=== PATIENT | male | born 1985 | race Caucasian/White ===

== ENCOUNTER 2016-07-06 19:32 | Emergency (ER) | payer BC ==
[2016-07-06 21:07] LABS: Appearance,Urine Clear (Clear); Bilirubin,Urine Negative (Negative); Glucose,Urine (UA) Negative (Negative); Ketones,Urine Negative (Negative); Leukocyte Esterase,Urine Negative (Negative); Nitrite,Urine Negative (Negative); PH, Urine 5.5 (5.0-8.0); Protein,Urine Negative (Negative); Specific Gravity,Urine 1.016 (1.001-1.035); UA Billing (MACRO vs. MICRO) CHEM; Urobilinogen,Urine <2.0 mg/dL (<2.0)
--- NOTE | 2016-07-06 21:34 | ED ---
Male Urogenital HPI - General Chief complaint: Urogenital Stated complaint: Male Time Seen by Provider: 07/06/16 20:11 Source: patient Mode of arrival: ambulatory Limitations: no limitations - Related Data Previous Rx's Medication Instructions Recorded Doxycycline Monohydrate [Monodox] 100 mg PO Q12HR #14 cap 07/06/16 Ibuprofen [Motrin] 800 mg PO Q8HR PRN #30 tab 07/06/16 Allergies Allergy/AdvReac Type Severity Reaction Status Date / Time amoxicillin Allergy Rash/Hives Verified 07/06/16 20:21 Review of Systems ROS Statement: Those systems with pertinent positive or pertinent negative responses have been documented in the HPI. ROS Other: All systems not noted in ROS Statement are negative. Past Medical History Past Medical History: No Reported History History of Any Multi-Drug Resistant Organisms: None Reported Past Surgical History: Tonsillectomy Past Psychological History: No Psychological Hx Reported Smoking Status: Never smoker General Exam Limitations: no limitations Course Vital Signs 07/06/16 19:49 Temperature 97.2 F L Pulse Rate 89 Respiratory 16 Rate Blood Pressure 160/90 O2 Sat by Pulse 97 Oximetry Medical Decision Making - Lab Data Lab Results 07/06/16 Range/Units 20:56 Urine Color Yellow Urine Appearance Clear (Clear) Urine pH 5.5 (5.0-8.0) Ur Specific [place] 1.016 (1.001-1.035) Urine Protein Negative (Negative) Urine Glucose (UA) Negative (Negative) Urine Ketones Negative (Negative) Urine Blood Negative (Negative) Urine Nitrate Negative (Negative) Urine Bilirubin Negative (Negative) Urine Urobilinogen <2.0 (<2.0) mg/dL Ur Leukocyte Esterase Negative (Negative) - Radiology Data Radiology results: report reviewed No torsion Disposition Clinical Impression: Orchitis Disposition: HOME SELF-CARE Condition: Good Instructions: Orchitis (ED) Prescriptions: Doxycycline Monohydrate [Monodox] 100 mg PO Q12HR #14 cap Ibuprofen [Motrin] 800 mg PO Q8HR PRN #30 tab PRN Reason: Pain Time of Disposition: 21:54
--- NOTE | 2016-07-06 22:06 | US ---
EXAMINATION TYPE: US scrotum with doppler. Grayscale and color Doppler Duplex imaging performed of t jaki scrotum. DATE OF EXAM: 07/06/2016 9:25 PM COMPARISON: NONE CLINICAL HISTORY: US. Left testicle edema EXAM MEASUREMENTS: TESTICLES: Right Testicle: 2.4 x 1.2 x 1.9cm cm Left Testicle: 1.9 x 1.3 x 1.9cm cm EPIDIDYMIS HEAD: Right Epididymis: 0.9 cm Left Epididymis: 1.6 cm Doppler performed to assess for testicular vascularity; good bilateral color flow and waveforms are s een. There is no evidence of testicular torsion. TECHNOLOGIST IMPRESSION: Cystic area right epididymis = 0.7 x 0.5 x 0.6cm Cystic areas left epididymis, largest = 1.1 x 0.7 x 1.1cm *Epididymis appears prominent bilaterally, with slightly increased blood flow on the left IMPRESSION: No testicular torsion or mass. Bilateral epididymal cysts. Mild hyperemia of the left epi didymis that could relate to epididymitis.
[2016-07-06 22:10] VITALS: BP 120/56; PULSE 80; RESP 20; TEMP 98.2
--- NOTE | 2016-07-09 14:41 | CDI ---
Please add additional documentation in the Review of System and General Exam in order to accurately code the account. Any questions, please let me know. Thank you, RICHARD Franco 07/09/16 JOSE LUIS
== END 2016-07-06 22:10 | disposition home or self-care (01) ==
LOC: EC 19:32
DX: N45.2 Orchitis (principal); Z88.0 Allergy status to penicillin
CPT/HCPCS: 76870; 81003; 93975; 99284

== ENCOUNTER 2021-06-04 22:57 | Emergency (ER) | payer BC ==
[2021-06-04 23:04] VITALS: BP 152/101; TEMP 98
[2021-06-05 00:41] LABS: Basophils # (A) 0.1 k/uL (0-0.2); Basophils % (A) 1 %; Eosinophils # (A) 0.5 k/uL (0-0.7); Eosinophils % (A) 5 %; HCT 47.3 % (39.0-53.0); HGB 16.2 gm/dL (13.0-17.5); Lymphocytes # (A) 1.3 k/uL (1.0-4.8); Lymphocytes % (A) 12 %; MCH 29.8 pg (25.0-35.0); MCHC 34.3 g/dL (31.0-37.0); MCV 86.8 fL (80.0-100.0); Mean Platelet Volume 7.9; Monocytes # (A) 0.5 k/uL (0-1.0); Monocytes % (A) 5 %; Neutrophils # (A) 8.3 k/uL (1.3-7.7); Neutrophils % (A) 77 %; Platelet Count 250 k/uL (150-450); RBC 5.45 m/uL (4.30-5.90); RDW 13.3 % (11.5-15.5); WBC 10.8 k/uL (3.8-10.6)
[2021-06-05 00:53] LABS: Partial Thromboplastin Time 26.9 sec (22.0-30.0); Prothrombin Time 10.7 sec (9.0-12.0)
--- NOTE | 2021-06-05 00:58 | XR ---
EXAMINATION TYPE: XR chest 2V DATE OF EXAM: 06/05/2021 COMPARISON: NONE HISTORY: Chest pain TECHNIQUE: 2 views FINDINGS: Heart and mediastinum are normal. Lungs are clear. Diaphragm is normal. Bony thorax appears normal. IMPRESSION: Normal chest.
[2021-06-05 01:03] LABS: ALT 82 U/L (4-49); AST 116 U/L (17-59); African American GFR (CKD) >90 (>60 ml/min/1.73 sqM); Albumin 4.5 g/dL (3.5-5.0); Alkaline Phosphatase 73 U/L (38-126); Anion Gap 10 mmol/L; Blood Urea Nitrogen 12 mg/dL (9-20); Calcium 9.9 mg/dL (8.4-10.2); Carbon Dioxide 29 mmol/L (22-30); Chloride 99 mmol/L (98-107); Glucose 106 mg/dL (74-99); Lipase 129 U/L (23-300); Non-African American GFR(CKD) 87 (>60 ml/min/1.73 sqM); Potassium 4.2 mmol/L (3.5-5.1); Sodium 138 mmol/L (137-145); Total Bilirubin 0.8 mg/dL (0.2-1.3); Total Protein 7.6 g/dL (6.3-8.2)
--- NOTE | 2021-06-05 01:28 | ED ---
Chest Pain HPI - General Chief Complaint: Chest Pain Stated Complaint: Chest Pain Time Seen by Provider: 06/04/21 23:00 Source: patient Limitations: no limitations - History of Present Illness Initial Comments: Patient is a 36-year-old male with no reported past medical history presents emergency room with chest pain. States that the pain started around 8 PM the night as he was getting ready to go to bed. Describes it as a substernal pressure which radiated up into his shoulders. He attempted to make himself throw up however did not have any improvement in symptoms. Denies any recent fevers, chills or cough. Previous history of cardiac disease. Denies any abdominal pain. No changes in his bowel or bladder habits. Patient did have resolution of his pain upon presentation to the emergency department. No other alleviating, precipitating or modifying factors - Related Data Previous Rx's Medication Instructions Recorded Doxycycline Monohydrate [Monodox] 100 mg PO Q12HR #14 cap 07/06/16 Ibuprofen [Motrin] 800 mg PO Q8HR PRN #30 tab 07/06/16 Allergies Allergy/AdvReac Type Severity Reaction Status Date / Time amoxicillin Allergy Rash/Hives Verified 06/04/21 23:04 Review of Systems ROS Statement: Those systems with pertinent positive or pertinent negative responses have been documented in the HPI. ROS Other: All systems not noted in ROS Statement are negative. EKG Findings - EKG Comments: EKG Findings:: EKG demonstrates a sinus rhythm with a ventricular rate of 76.. KS interval 162. Care is E4. QTC of 416. J-point elevation in 1 and aVL. Inverted T-wave lead 3. Past Medical History Past Medical History: Hypertension History of Any Multi-Drug Resistant Organisms: None Reported Past Surgical History: Tonsillectomy Past Psychological History: No Psychological Hx Reported Smoking Status: Never smoker Past Alcohol Use History: Occasional Past Drug Use History: Marijuana General Exam Limitations: no limitations General appearance: alert, in no apparent distress Head exam: Present: atraumatic, normocephalic, normal inspection Eye exam: Present: normal appearance, PERRL, EOMI. Absent: scleral icterus, conjunctival injection, periorbital swelling ENT exam: Present: normal exam, mucous membranes moist Neck exam: Present: normal inspection. Absent: tenderness, meningismus, lymphadenopathy Respiratory exam: Present: normal lung sounds bilaterally. Absent: respiratory distress, wheezes, rales, rhonchi, stridor Cardiovascular Exam: Present: regular rate, normal rhythm, normal heart sounds. Absent: systolic murmur, diastolic murmur, rubs, gallop, clicks GI/Abdominal exam: Present: soft, normal bowel sounds. Absent: distended, tenderness, guarding, rebound, rigid Extremities exam: Present: normal inspection, full ROM, normal capillary refill. Absent: tenderness, pedal edema, joint swelling, calf tenderness Back exam: Present: normal inspection Neurological exam: Present: alert, oriented X3, CN II-XII intact Psychiatric exam: Present: normal affect, normal mood Skin exam: Present: warm, dry, intact, normal color. Absent: rash Course Vital Signs 06/04/21 06/05/21 22:59 01:36 Temperature 98.0 F Pulse Rate 90 74 Respiratory 18 16 Rate Blood Pressure 152/101 O2 Sat by Pulse 99 97 Oximetry Chest Pain MDM - MDM On arrival patient was placed into room 19. Thorough history and physical exam was performed. Patient placed on continuous pulse ox and cardiac monitoring. 12-lead EKG was obtained. Laboratory studies are reviewed. His troponin level is negative. AST and ALTs are mildly elevated. Chest x-ray demonstrates no acute process. Patient remained pain-free while in the emergency room. Heart is 0. I did recommend that the patient have follow-up with his primary care physician. Needs a Holter monitor, stress test and echo. Patient agreed to this. If he has any new or worsening symptoms he should return to the emergency room. Patient agreed that she will was discharged home in stable condition Disposition Clinical Impression: Chest pain Disposition: HOME SELF-CARE Condition: Stable Instructions (If sedation given, give patient instructions): Chest Pain (ED) Additional Instructions: Follow-up with your primary care doctor within 2-4 days for reevaluation. I do recommend Holter monitoring, echo and a stress test. Return to the emergency room for any new or worsening symptoms Is patient prescribed a controlled substance at d/c from ED?: No Referrals: Divya Barrett DO [Primary Care Provider] - 1-2 days Time of Disposition: 01:28
[2021-06-05 01:37] VITALS: PULSE 74; RESP 16
== END 2021-06-05 01:43 | disposition home or self-care (01) ==
LOC: EC 22:57
DX: R07.9 Chest pain, unspecified (principal); I10 Essential (primary) hypertension; Z88.0 Allergy status to penicillin
CPT/HCPCS: 36415; 71046; 80053; 83690; 83735; 84484; 85025; 85610; 85730; 93005; 99285

== ENCOUNTER → 2023-07-18 | Outpatient (CLI) | payer MEDICAID ==
[2023-07-18 13:11] LABS: HCT 51.1 % (39.6-50.0); HGB 16.9 g/dL (13.0-17.0); MCH 28.4 pg (27.0-32.0); MCHC 33.1 g/dL (32.0-37.0); MCV 85.7 FL (80.0-97.0); Mean Platelet Volume 10.3 FL (9.5-12.2); NRBC Per 100 WBC 0 X 10*3/uL (0.00-0.01); Platelet Count 262 X 10*3/uL (140-440); RBC 5.96 X 10*6/uL (4.40-5.60); RDW 12.5 % (11.5-14.5)
[2023-07-18 13:12] LABS: Basophils # (A) 0.11 X 10*3/uL (0.00-0.10); Basophils % (A) 1.6 %; Eosinophils # (A) 0.65 X 10*3/uL (0.04-0.35); Eosinophils % (A) 9.6 %; Lymphocytes % (A) 26.5 %; Monocytes % (A) 8.8 %; Neutrophils # (A) 3.62 X 10*3/uL (1.80-7.70); Neutrophils % (A) 53.2 %
[2023-07-18 13:22] LABS: ALT 31 U/L (10-49); AST 23 U/L (14-35); Albumin 4.6 g/dL (3.8-4.9); Alkaline Phosphatase 89 U/L (41-126); BUN/Creat Ratio 6.27 Ratio (12.00-20.00); Blood Urea Nitrogen 6.9 mg/dL (9.0-27.0); Carbon Dioxide 28.5 mmol/L (21.6-31.8); Chloride 101 mmol/L (96-109); Chol/HDL Ratio 5.16 Ratio; Globulin 2.7 g/dL (1.6-3.3); Glucose 93 mg/dL (70-110); LDL Cholesterol,Calculated 136.7 mg/dL (0.0-131.0); Potassium 5.1 mmol/L (3.5-5.5); Sodium 139 mmol/L (135-145); Total Bilirubin 0.9 mg/dL (0.3-1.2); Total Protein 7.3 g/dL (6.2-8.2); Uric Acid 5.7 mg/dL (3.7-8.7)
== END | disposition home or self-care (01) ==
LOC: LABWHC1 08:48
PROVIDERS: ATTEND Family Medicine
DX: Z13.220 Encounter for screening for lipoid disorders (principal); Z13.1 Encounter for screening for diabetes mellitus; M25.562 Pain in left knee
CPT/HCPCS: 36415; 80053; 80061; 84550; 85025

== ENCOUNTER → 2024-04-19 | Outpatient (CLI) | payer MEDICAID ==
--- NOTE | 2024-04-19 12:01 | CA ---
Stress Echo Report Lion Antonio Age: 39 Gender: M : 1985 Exam Date: 04/19/2024 10:59 Exam Location: [facility] Ht (in): 73 Wt (lb): 210 Ordering Physician: Zaida Sears DO Referring Physician: Kelley Allred Litigation Counsel: January Pitts RDCS Technologist Procedure CPT: Indication: R07.89 chest pain ICD-9 Codes: Rhythm: Patient History: CHEST PAIN, FAMILY HX OF HEART DISEASE Cardiac Medications: Medications in past 24 hours: Contrast: Stress Results Protocol: Chato Total dose(mL): Exercise Duration (min:sec): 10:[address] Depression (mm): Angina Score: Johnson Score: METS: 11.7 Resting HR: 94 Resting BP: 128 / 77 Peak HR: 178 Peak BP: 210 / 84 Max Predicted HR: 179 99 % Max Predicted HR Target HR: 152 Double Product: 84110 Stress Summary: BP Response: Reason for Termination: MAX EXERTION/TARGET HR Cardiac Symptoms: NO SYMPTOMS ECG Analysis Resting ECG: Normal sinus rhythm normal axis normal intervals Stress ECG: Patient exercised on Chato protocol for 10 minutes achieving 11 METS 85% of predicted maximal heart rate without chest pain or diagnostic ST segment depression Arrhythmia: Echo Analysis Resting Echo: Normal left ventricular size wall motion and systolic function Peak Echo Analysis: Normal hyperdynamic response MEASUREMENTS (Male/Female) Normal Values CONCLUSIONS Good exercise tolerance Negative stress test by EKG criteria Negative stress echo Dr. Malvin Valencia MD (Electronically Signed) Final Date: 19 April 2024 12:00
== END | disposition home or self-care (01) ==
LOC: RADNMMAIN 09:58
PROVIDERS: ATTEND Family Medicine
DX: R07.89 Other chest pain (principal)
CPT/HCPCS: 93351